=== PATIENT | female | born 1990 | race African-American/Black ===

== ENCOUNTER 2023-12-01 20:38 | Emergency (ER) | payer SELFPAY ==
[~2023-12-01] VITALS: Ht 154.9 cm; Wt 66.2 kg
[2023-12-01 20:52] VITALS: BP 151/85; PULSE 48; RESP 16; TEMP 97.5; O2SAT 100
[2023-12-01 21:16] VITALS: BP 151/85; PULSE 48; RESP 16; TEMP 97.5
[2023-12-01 21:19] VITALS: O2SAT 98
[2023-12-01] MEDS: IBUPROFEN 600 MG TAB PO ONE (22:06)
[2023-12-01] MEDS: PSEUDOEPHEDRINE 30 MG TAB PO ONE (22:06)
[2023-12-01] MEDS ORDERED: FLONAS NS (22:09)
[2023-12-01] MEDS ORDERED: LORA1T1237 PO (22:09)
[2023-12-01] MEDS ORDERED: NAPR-337 PO (22:09)
== END 2023-12-01 22:21 | disposition home or self-care (01) ==
LOC: MED 20:38
DX: H92.02 Otalgia, left ear (principal); R00.1 Bradycardia, unspecified; R03.0 Elevated blood-pressure reading, without diagnosis of hypertension; Z79.1 Long term (current) use of non-steroidal anti-inflammatories (NSAID); Z79.899 Other long term (current) drug therapy
CPT/HCPCS: 93005; 99283